=== PATIENT | female | born 1945 | race Caucasian/White ===

== ENCOUNTER 2024-03-18 21:55 | Inpatient (IN) | payer MEDICARE ==
[~2024-03-18] VITALS: Ht 154.9 cm; Wt 79.8 kg
[2024-03-18 22:17] VITALS: BP_SYST 156; PULSE 82; RESP 22; TEMP 97; O2SAT 98
[2024-03-18 23:30] LABS: BASOPHILS % (AUTO) 0.5 % (0.0-2.0); EOSINOPHILS % (AUTO) 0.4 % (0.0-4.0); HEMATOCRIT 40.3 % (36-48); HEMOGLOBIN 13.8 g/dL (12.0-16.0); LYMPHOCYTES # (AUTO) 0.7 K/uL (1.0-5.5); LYMPHOCYTES % (AUTO) 24.7 % (20.5-51.5); MEAN CORPUSCULAR HEMOGLOBIN 31 pg (27-31); MEAN CORPUSCULAR HGB CONC 34 % (32-36); MEAN CORPUSCULAR VOLUME 89 fL (79.0-98.0); MONOCYTES # (AUTO) 0.1 K/uL (0.0-1.0); MONOCYTES % (AUTO) 2.7 % (1.7-9.3); NEUTROPHILS # (AUTO) 2.1 K/uL (1.8-7.7); NEUTROPHILS % (AUTO) 71.7 % (40.0-70.0); PLATELET COUNT (AUTO) 193 K/uL (130-430); RED BLOOD CELL COUNT(AUTO) 4.52 MIL/uL (4.2-6.2); RED CELL DISTRIBUTION WIDTH 15.4 % (9.0-15.0)
[2024-03-18] MEDS: MORPHINE 4 MG INJ. 4 MG/ML VIAL IVP ONE (23:34)
[2024-03-18] MEDS: NACL 0.9% 1,000 ML IV ONE (23:49)
[2024-03-19] VITALS (21 sets, daily range): BP systolic 76–136; PULSE 111–132; RESP 12–27; TEMP 97.1–98.6; O2SAT 26–98
[2024-03-19 00:06] LABS: ALANINE AMINOTRANSFERASE 13 U/L (12-78); ALBUMIN 3.1 g/dL (3.4-4.8); ANION GAP 12 (5-15); ASPARTATE AMINOTRANSFERASE 10 U/L (10-37); BILIRUBIN,DIRECT 0.2 mg/dL (0.0-0.3); CALCIUM 8.7 mg/dL (8.4-11.0); CARBON DIOXIDE 22 mmol/L (23-29); CHLORIDE 103 mmol/L (98-107); CREATININE 0.84 mg/dL (0.55-1.30); GLUCOSE 146 mg/dL (74-106); POTASSIUM 3.9 mmol/L (3.5-5.1); SODIUM SERUM 137 mmol/L (136-145); TOTAL BILIRUBIN 0.5 mg/dL (0.0-1.0); TOTAL PROTEIN, SERUM 6.7 g/dL (6.4-8.3); UREA NITROGEN, BLOOD 24 mg/dL (8-21)
[2024-03-19 00:38] LABS: BILIRUBIN,URINE NEGATIVE (NEGATIVE); BLOOD, URINE NEGATIVE (NEGATIVE); CLARITY/URINE CLEAR (CLEAR); COLOR,URINE YELLOW (YELLOW); GLUCOSE,URINE NEGATIVE (NEGATIVE); KETONES,URINE NEGATIVE (NEGATIVE); LEUKOCYTE ESTERASE ,URINE NEGATIVE (NEGATIVE); NITRITE, URINE NEGATIVE (NEGATIVE); PROTEIN URINE NEGATIVE (NEGATIVE); UROBILINOGEN,URINE 0.2 (0.2-1.0)
[2024-03-19] MEDS: MORPHINE 4 MG INJ. 4 MG/ML VIAL IVP ONE (00:53)
[2024-03-19] MEDS ORDERED: MORPHINE 4 MG INJ. 4 MG/ML VIAL ONE (00:54)
[2024-03-19] MEDS ORDERED: ONDANSETRON HCL 4 MG/2 ML VIAL IVP PRN ×2 (01:30→09:15)
[2024-03-19] MEDS: D5NS 1,000 ML IV SCH (02:14)
[2024-03-19] MEDS ORDERED: DIATR MEGLU/DIATRIZ SOD 30 ML SOLUTION PO ONE (02:20)
[2024-03-19] MEDS: MORPHINE 2 MG/ML INJ. SYRINGE IVP PRN ×2 (03:27→07:52)
[2024-03-19] MEDS ORDERED: ONDA4TAB55 PO (06:45)
[2024-03-19] MEDS ORDERED: ACET1TAB93 PO (06:45)
[2024-03-19] MEDS ORDERED: TRAM50TA2 PO (06:45)
[2024-03-19] MEDS ORDERED: ALEN70TA27 PO (06:45)
[2024-03-19] MEDS ORDERED: ZOLPIDEM TARTRATE 5 MG TABLET PO PRN (07:30)
[2024-03-19] MEDS ORDERED: DOCUSATE SODIUM 100 MG CAPSULE PO PRN (07:30)
[2024-03-19] MEDS ORDERED: MUPIROCIN 2% TOPICAL OINTMENT 22 GM NS PRN (07:30)
[2024-03-19] MEDS ORDERED: POTASSIUM CHLORIDE 20 MEQ TABLET.ER PO PRN (07:30)
[2024-03-19] MEDS ORDERED: MORPHINE 2 MG/ML INJ. SYRINGE IVP PRN (07:30)
[2024-03-19] MEDS ORDERED: ACETAMINOPHEN 325 MG TABLET PO PRN ×3 (07:30→07:45)
[2024-03-19] MEDS ORDERED: NALOXONE HCL 0.4 MG/ML AMP (NARCAN) IVP PRN ×2 (07:30)
[2024-03-19] MEDS ORDERED: PIPERACILLIN/TAZOBACTAM 3.375 GM/VIAL (ZOSYN) IV ONE (07:45)
[2024-03-19] MEDS ORDERED: NACL 0.9% 500 ML IV SCH (08:15)
[2024-03-19] MEDS: PIPERACILLIN/TAZO 3.375 GM in D5W 50 ML IV SCH (08:32)
[2024-03-19 08:40] LABS: BASOPHILS % (AUTO) 0.3 % (0.0-2.0); HEMATOCRIT 40.9 % (36-48); HEMOGLOBIN 13.3 g/dL (12.0-16.0); LYMPHOCYTES # (AUTO) 0.4 K/uL (1.0-5.5); LYMPHOCYTES % (AUTO) 12.7 % (20.5-51.5); MEAN CORPUSCULAR HEMOGLOBIN 30 pg (27-31); MEAN CORPUSCULAR HGB CONC 33 % (32-36); MEAN CORPUSCULAR VOLUME 91 fL (79.0-98.0); MONOCYTES # (AUTO) 0.2 K/uL (0.0-1.0); MONOCYTES % (AUTO) 6.9 % (1.7-9.3); NEUTROPHILS # (AUTO) 2.7 K/uL (1.8-7.7); NEUTROPHILS % (AUTO) 80.1 % (40.0-70.0); PLATELET COUNT (AUTO) 186 K/uL (130-430); RED CELL DISTRIBUTION WIDTH 15.4 % (9.0-15.0); WHITE BLOOD COUNT (AUTO) 3.4 K/uL (4.8-10.8)
[2024-03-19 09:06] LABS: HEMOGLOBIN A1C 6.2 % (<5.7)
[2024-03-19] MEDS ORDERED: HYDROmorphone 1 MG/ML INJ. CARTRIDGE IVP PRN (09:15)
[2024-03-19] MEDS ORDERED: MORPHINE 4 MG INJ. 4 MG/ML VIAL IVP PRN (09:15)
[2024-03-19] MEDS ORDERED: DEXAMETHASONE SOD PHOSPHATE 4 MG/ML VIAL ONE (09:26)
[2024-03-19] MEDS: FENTANYL CITRATE-0.9 % NACL/PF 100 ML IV ONE (12:29)
[2024-03-19] MEDS: MIDAZOLAM IN NACL,ISO-OSMOT/PF 100 ML IV ONE (12:30)
[2024-03-19] MEDS: MIDAZOLAM IN NACL,ISO-OSMOT/PF 100 ML IV PRN (12:47)
[2024-03-19] MEDS: FENTANYL CITRATE-0.9 % NACL/PF 100 ML IV PRN (12:50)
[2024-03-19] MEDS: LR 1,000 ML IV SCH (12:55)
[2024-03-19] MEDS: NOREPINEPHRINE 4 MG/4 ML VIAL IV ONE ×2 (13:41→13:44)
[2024-03-19 13:42] LABS: ABG O2 SAT% ESTIMATE 95.1 % (94.0-100.0); BLOOD GAS PCO2 38.5 mmHg (35.0-45.0); BLOOD GAS PO2 85.5 mmHg (75.0-100.0)
[2024-03-19 13:52] LABS: BLOOD GAS BASE EXCESS -9.5 mmol/L (-3.0-3.0); BLOOD GAS HCO3 16.9 mmol/L (21.0-27.0)
[2024-03-19] MEDS: NOREPINEPHRINE BITARTRATE 8 MG in D5W 242 ML IV PRN (14:19)
[2024-03-19 16:04] LABS: INR 1.3 (0.8-1.2); PROTHROMBIN TIME 13.3 SECS (9.5-12.5)
[2024-03-19] MEDS: NS 500 ML IV ONE (17:20)
[2024-03-19] MEDS: PROPOFOL DRIP 100 ML IV PRN (22:54)
[2024-03-20] VITALS (42 sets, daily range): BP systolic 91–137; PULSE 100–138; RESP 15–23; TEMP 98.2–99.9; O2SAT 95–100
[2024-03-20 04:56] LABS: BASOPHILS % (AUTO) 0.1 % (0.0-2.0); EOSINOPHILS % (AUTO) 0.1 % (0.0-4.0); HEMATOCRIT 37.1 % (36-48); HEMOGLOBIN 12.2 g/dL (12.0-16.0); LYMPHOCYTES # (AUTO) 0.8 K/uL (1.0-5.5); LYMPHOCYTES % (AUTO) 5.1 % (20.5-51.5); MEAN CORPUSCULAR HEMOGLOBIN 30 pg (27-31); MEAN CORPUSCULAR HGB CONC 33 % (32-36); MEAN CORPUSCULAR VOLUME 90 fL (79.0-98.0); MONOCYTES # (AUTO) 0.5 K/uL (0.0-1.0); MONOCYTES % (AUTO) 3.2 % (1.7-9.3); NEUTROPHILS # (AUTO) 14.5 K/uL (1.8-7.7); NEUTROPHILS % (AUTO) 91.5 % (40.0-70.0); PLATELET COUNT (AUTO) 176 K/uL (130-430); RED BLOOD CELL COUNT(AUTO) 4.13 MIL/uL (4.2-6.2); RED CELL DISTRIBUTION WIDTH 15.3 % (9.0-15.0); WHITE BLOOD COUNT (AUTO) 15.8 K/uL (4.8-10.8)
[2024-03-20 05:12] LABS: ANION GAP 14 (5-15); CALCIUM 7.2 mg/dL (8.4-11.0); CARBON DIOXIDE 18 mmol/L (23-29); CHLORIDE 104 mmol/L (98-107); CREATININE 1.01 mg/dL (0.55-1.30); GLUCOSE 148 mg/dL (74-106); POTASSIUM 3.8 mmol/L (3.5-5.1); SODIUM SERUM 136 mmol/L (136-145); UREA NITROGEN, BLOOD 26 mg/dL (8-21)
[2024-03-20] MEDS: MAGNESIUM SULFATE 50 ML IV PRN (08:52)
[2024-03-20] MEDS: MAGNESIUM SULFATE 50 ML IV ONE (09:30)
[2024-03-20] MEDS: MEROPENEM 1 GM in NS 100 ML IV SCH (09:38)
[2024-03-20] MEDS: ALBUMIN HUMAN 5% 500 ML IV ONE (11:16)
[2024-03-20] MEDS: FLUCONAZOLE 200 mg/ NS 100 ML IV SCH (14:49)
[2024-03-20] MEDS ORDERED: metroNIDAZOLE 500 mg/NS 100 ML IV SCH (21:00)
[2024-03-20] MEDS: HEPARIN SODIUM,PORCINE 5,000 UNITS/ML VIAL SUBCUT SCH (21:40)
[2024-03-21] VITALS (41 sets, daily range): BP systolic 81–182; PULSE 80–111; RESP 14–53; TEMP 98.7–99.6; O2SAT 94–100
[2024-03-21 04:52] LABS: BASOPHILS % (AUTO) 0.2 % (0.0-2.0); EOSINOPHILS # (AUTO) 0.1 K/uL (0.0-0.4); EOSINOPHILS % (AUTO) 0.7 % (0.0-4.0); HEMATOCRIT 29.2 % (36-48); HEMOGLOBIN 9.5 g/dL (12.0-16.0); LYMPHOCYTES # (AUTO) 0.8 K/uL (1.0-5.5); LYMPHOCYTES % (AUTO) 4.6 % (20.5-51.5); MEAN CORPUSCULAR HEMOGLOBIN 29 pg (27-31); MEAN CORPUSCULAR HGB CONC 33 % (32-36); MEAN CORPUSCULAR VOLUME 90 fL (79.0-98.0); MONOCYTES # (AUTO) 0.4 K/uL (0.0-1.0); MONOCYTES % (AUTO) 2.1 % (1.7-9.3); NEUTROPHILS # (AUTO) 16.8 K/uL (1.8-7.7); NEUTROPHILS % (AUTO) 92.4 % (40.0-70.0); PLATELET COUNT (AUTO) 114 K/uL (130-430); RED BLOOD CELL COUNT(AUTO) 3.24 MIL/uL (4.2-6.2); RED CELL DISTRIBUTION WIDTH 15.9 % (9.0-15.0); WHITE BLOOD COUNT (AUTO) 18.1 K/uL (4.8-10.8)
[2024-03-21 05:27] LABS: ANION GAP 8 (5-15); CALCIUM 7.2 mg/dL (8.4-11.0); CARBON DIOXIDE 23 mmol/L (23-29); CHLORIDE 107 mmol/L (98-107); CREATININE 0.75 mg/dL (0.55-1.30); GLUCOSE 123 mg/dL (74-106); POTASSIUM 3.2 mmol/L (3.5-5.1); SODIUM SERUM 138 mmol/L (136-145); UREA NITROGEN, BLOOD 15 mg/dL (8-21)
[2024-03-21] MEDS: KCL 20 mEq in 100 mL (PREMIX) 100 ML IV ONE (08:18)
[2024-03-21 10:57] LABS: ABG O2 SAT% ESTIMATE 96.3 % (94.0-100.0); BLOOD GAS BASE EXCESS -3.2 mmol/L (-3.0-3.0); BLOOD GAS HCO3 20.2 mmol/L (21.0-27.0); BLOOD GAS PCO2 30.5 mmHg (35.0-45.0); BLOOD GAS PH 7.439 (7.350-7.450); BLOOD GAS PO2 79.2 mmHg (75.0-100.0)
[2024-03-21 11:01] LABS: ALLEN'S TEST POSITIVE (P)
[2024-03-21] MEDS: PIPERACILLIN/TAZO 4.5 GM in D5W 100 ML IV SCH (12:31)
[2024-03-21] MEDS ORDERED: ACETAMINOPHEN 500 MG TABLET PO PRN ×2 (16:00)
[2024-03-22] VITALS (33 sets, daily range): BP systolic 122–167; PULSE 68–105; RESP 14–32; TEMP 97.9–99.2; O2SAT 94–100
[2024-03-22 05:22] LABS: ANION GAP 6 (5-15); CALCIUM 7.3 mg/dL (8.4-11.0); CARBON DIOXIDE 24 mmol/L (23-29); CHLORIDE 110 mmol/L (98-107); GLUCOSE 135 mg/dL (74-106); POTASSIUM 3.1 mmol/L (3.5-5.1); SODIUM SERUM 140 mmol/L (136-145); UREA NITROGEN, BLOOD 11 mg/dL (8-21)
[2024-03-22 05:31] LABS: BASOPHILS # (AUTO) 0.1 K/uL (0.0-0.2); BASOPHILS % (AUTO) 0.5 % (0.0-2.0); EOSINOPHILS # (AUTO) 0.7 K/uL (0.0-0.4); EOSINOPHILS % (AUTO) 4.4 % (0.0-4.0); HEMATOCRIT 27.8 % (36-48); HEMOGLOBIN 9.2 g/dL (12.0-16.0); LYMPHOCYTES % (AUTO) 7.1 % (20.5-51.5); MEAN CORPUSCULAR HEMOGLOBIN 30 pg (27-31); MEAN CORPUSCULAR HGB CONC 33 % (32-36); MEAN CORPUSCULAR VOLUME 89 fL (79.0-98.0); MONOCYTES # (AUTO) 0.5 K/uL (0.0-1.0); MONOCYTES % (AUTO) 3.3 % (1.7-9.3); NEUTROPHILS # (AUTO) 12.5 K/uL (1.8-7.7); PLATELET COUNT (AUTO) 123 K/uL (130-430); RED BLOOD CELL COUNT(AUTO) 3.12 MIL/uL (4.2-6.2); RED CELL DISTRIBUTION WIDTH 15.6 % (9.0-15.0); WHITE BLOOD COUNT (AUTO) 14.7 K/uL (4.8-10.8)
[2024-03-22 08:00] LABS: NEUTROPHILS % (AUTO) 84.7 % (40.0-70.0)
[2024-03-22] MEDS: KCL 40 mEq in 100 mL (PREMIX) 100 ML IV ONE (08:29)
[2024-03-22 09:30] LABS: ABG O2 SAT% ESTIMATE 97.8 % (94.0-100.0); BLOOD GAS BASE EXCESS -2.3 mmol/L (-3.0-3.0); BLOOD GAS PCO2 30.8 mmHg (35.0-45.0); BLOOD GAS PH 7.451 (7.350-7.450); BLOOD GAS PO2 97.9 mmHg (75.0-100.0)
[2024-03-22 09:39] LABS: ALLEN'S TEST POSITIVE (P)
[2024-03-22] MEDS ORDERED: *TPN PER PHARMACY XX PRN (12:45)
[2024-03-22] MEDS ORDERED: DEXTROSE 50% JECT 50 ML DISP.SYRIN IVP PRN (12:45)
[2024-03-22] MEDS: IPRATROPIUM BROM 0.5 MG/2.5 ML VIAL.NEB (ATROVENT) INH SCH (19:21)
[2024-03-22] MEDS: LevALBUTEROL HCL 1.25 MG/0.5 ML *CONC.* VIAL.NEB (XOPENEX CONC.) INH SCH (19:21)
[2024-03-22] MEDS: BUDESONIDE 0.5 MG/2 ML AMPUL.NEB INH SCH (19:22)
[2024-03-23] VITALS (31 sets, daily range): BP systolic 92–152; PULSE 84–123; RESP 20–29; TEMP 98.8–101.2; O2SAT 92–100
[2024-03-23 05:36] LABS: ANION GAP 4 (5-15); CARBON DIOXIDE 25 mmol/L (23-29); CHLORIDE 108 mmol/L (98-107); CREATININE 0.61 mg/dL (0.55-1.30); GLUCOSE 156 mg/dL (74-106); PHOSPHORUS 1.6 mg/dL (2.7-4.5); POTASSIUM 3.1 mmol/L (3.5-5.1); SODIUM SERUM 137 mmol/L (136-145); UREA NITROGEN, BLOOD 9 mg/dL (8-21)
[2024-03-23 05:37] LABS: BASOPHILS % (AUTO) 0.4 % (0.0-2.0); EOSINOPHILS # (AUTO) 0.1 K/uL (0.0-0.4); HEMATOCRIT 28.9 % (36-48); HEMOGLOBIN 9.9 g/dL (12.0-16.0); LYMPHOCYTES # (AUTO) 0.9 K/uL (1.0-5.5); LYMPHOCYTES % (AUTO) 9.6 % (20.5-51.5); MEAN CORPUSCULAR HEMOGLOBIN 30 pg (27-31); MEAN CORPUSCULAR HGB CONC 34 % (32-36); MEAN CORPUSCULAR VOLUME 88 fL (79.0-98.0); MONOCYTES # (AUTO) 0.9 K/uL (0.0-1.0); MONOCYTES % (AUTO) 9.8 % (1.7-9.3); NEUTROPHILS # (AUTO) 7.5 K/uL (1.8-7.7); NEUTROPHILS % (AUTO) 79.2 % (40.0-70.0); PLATELET COUNT (AUTO) 107 K/uL (130-430); RED BLOOD CELL COUNT(AUTO) 3.28 MIL/uL (4.2-6.2); RED CELL DISTRIBUTION WIDTH 15.4 % (9.0-15.0); WHITE BLOOD COUNT (AUTO) 9.5 K/uL (4.8-10.8)
[2024-03-23 06:14] LABS: TRIGLYCERIDES 105 mg/dL (30-150)
[2024-03-23] MEDS: MORPHINE 2 MG/ML INJ. SYRINGE IVP PRN (09:55)
[2024-03-23] MEDS ORDERED: LevALBUTEROL HCL 1.25 MG/0.5 ML *CONC.* VIAL.NEB (XOPENEX CONC.) INH ONE (11:36)
[2024-03-23] MEDS: LORazepam 2 MG/ML VIAL IVP PRN (11:52)
[2024-03-23] MEDS: POTASSIUM CHLORIDE 40 MEQ, LIDOCAINE JECT 2% PF 100 MG 50 MG in NS 250 ML IV ONE (11:56)
[2024-03-23] MEDS: INSULIN REGULAR, HUMAN 100 UNITS/ML, 3 ML VIAL (humuLIN R) SUBCUT PRN (12:16)
[2024-03-23] MEDS: MORPHINE 4 MG INJ. 4 MG/ML VIAL IVP PRN (18:15)
[2024-03-23] MEDS: TPN PERIPHERAL IV SCH (20:34)
[2024-03-23] MEDS: MVI IV SCH (20:34)
[2024-03-23] MEDS: K PHOS IV SCH (20:34)
[2024-03-23] MEDS: MAGNESIUM SULFATE IV SCH (20:34)
[2024-03-23] MEDS: [UNRECOGNIZED DRUG - OTHER] IV SCH (20:34)
[2024-03-23] MEDS: PIPERACILLIN/TAZO 4.5 GM in D5W 100 ML IV SCH (21:02)
[2024-03-23] MEDS ORDERED: metroNIDAZOLE 500 mg/NS 100 ML IV SCH (22:00)
[2024-03-24] VITALS (32 sets, daily range): BP systolic 105–159; PULSE 88–118; RESP 12–25; TEMP 99.1–101; O2SAT 92–100
[2024-03-24 06:30] LABS: BASOPHILS % (AUTO) 0.4 % (0.0-2.0); EOSINOPHILS # (AUTO) 0.2 K/uL (0.0-0.4); EOSINOPHILS % (AUTO) 1.7 % (0.0-4.0); HEMATOCRIT 26.5 % (36-48); HEMOGLOBIN 9.2 g/dL (12.0-16.0); MEAN CORPUSCULAR HEMOGLOBIN 31 pg (27-31); MEAN CORPUSCULAR HGB CONC 35 % (32-36); MEAN CORPUSCULAR VOLUME 88 fL (79.0-98.0); MONOCYTES # (AUTO) 0.9 K/uL (0.0-1.0); MONOCYTES % (AUTO) 7.7 % (1.7-9.3); NEUTROPHILS # (AUTO) 9.3 K/uL (1.8-7.7); NEUTROPHILS % (AUTO) 81.2 % (40.0-70.0); PLATELET COUNT (AUTO) 123 K/uL (130-430); RED BLOOD CELL COUNT(AUTO) 2.99 MIL/uL (4.2-6.2); RED CELL DISTRIBUTION WIDTH 15.5 % (9.0-15.0); WHITE BLOOD COUNT (AUTO) 11.4 K/uL (4.8-10.8)
[2024-03-24 06:47] LABS: ALANINE AMINOTRANSFERASE 18 U/L (12-78); ALBUMIN 1.1 g/dL (3.4-4.8); ANION GAP 5 (5-15); ASPARTATE AMINOTRANSFERASE 21 U/L (10-37); CALCIUM 7.2 mg/dL (8.4-11.0); CARBON DIOXIDE 24 mmol/L (23-29); CHLORIDE 107 mmol/L (98-107); CREATININE 0.58 mg/dL (0.55-1.30); GLUCOSE 169 mg/dL (74-106); PHOSPHORUS 1.9 mg/dL (2.7-4.5); POTASSIUM 3.2 mmol/L (3.5-5.1); SODIUM SERUM 136 mmol/L (136-145); TOTAL BILIRUBIN 0.5 mg/dL (0.0-1.0); TOTAL PROTEIN, SERUM 4.7 g/dL (6.4-8.3); UREA NITROGEN, BLOOD 14 mg/dL (8-21)
[2024-03-24] MEDS: POTASSIUM CHLORIDE 40 MEQ, LIDOCAINE JECT 2% PF 100 MG 50 MG in NS 250 ML IV ONE (12:10)
[2024-03-24] MEDS: LIDOCAINE JECT 2% PF 100 MG/5ML SYRINGE ONE (12:10)
[2024-03-24] MEDS: FUROSEMIDE 20 MG/2 ML VIAL IVP ONE (14:13)
[2024-03-24] MEDS: TPN PERIPHERAL IV SCH (22:01)
[2024-03-24] MEDS: SODIUM ACETATE IV SCH (22:01)
[2024-03-24] MEDS: K PHOS IV SCH (22:01)
[2024-03-24] MEDS: [UNRECOGNIZED DRUG - OTHER] IV SCH (22:01)
[2024-03-25] VITALS (29 sets, daily range): BP systolic 95–176; PULSE 75–107; RESP 18–27; TEMP 98–99; O2SAT 88–100
[2024-03-25 04:35] LABS: BASOPHILS # (AUTO) 0.1 K/uL (0.0-0.2); BASOPHILS % (AUTO) 0.4 % (0.0-2.0); EOSINOPHILS # (AUTO) 0.7 K/uL (0.0-0.4); EOSINOPHILS % (AUTO) 4.7 % (0.0-4.0); HEMATOCRIT 26.2 % (36-48); HEMOGLOBIN 8.8 g/dL (12.0-16.0); LYMPHOCYTES # (AUTO) 1.1 K/uL (1.0-5.5); LYMPHOCYTES % (AUTO) 7.6 % (20.5-51.5); MEAN CORPUSCULAR HEMOGLOBIN 30 pg (27-31); MEAN CORPUSCULAR HGB CONC 34 % (32-36); MEAN CORPUSCULAR VOLUME 89 fL (79.0-98.0); MONOCYTES # (AUTO) 0.7 K/uL (0.0-1.0); MONOCYTES % (AUTO) 4.9 % (1.7-9.3); NEUTROPHILS # (AUTO) 11.8 K/uL (1.8-7.7); NEUTROPHILS % (AUTO) 82.4 % (40.0-70.0); PLATELET COUNT (AUTO) 144 K/uL (130-430); RED BLOOD CELL COUNT(AUTO) 2.95 MIL/uL (4.2-6.2); RED CELL DISTRIBUTION WIDTH 15.3 % (9.0-15.0); WHITE BLOOD COUNT (AUTO) 14.3 K/uL (4.8-10.8)
[2024-03-25 05:05] LABS: ALANINE AMINOTRANSFERASE 19 U/L (12-78); ANION GAP 7 (5-15); ASPARTATE AMINOTRANSFERASE 33 U/L (10-37); CALCIUM 7.1 mg/dL (8.4-11.0); CARBON DIOXIDE 24 mmol/L (23-29); CHLORIDE 106 mmol/L (98-107); CREATININE 0.54 mg/dL (0.55-1.30); GLUCOSE 157 mg/dL (74-106); PHOSPHORUS 2.8 mg/dL (2.7-4.5); POTASSIUM 3.9 mmol/L (3.5-5.1); SODIUM SERUM 137 mmol/L (136-145); TOTAL BILIRUBIN 0.7 mg/dL (0.0-1.0); TOTAL PROTEIN, SERUM 4.4 g/dL (6.4-8.3); UREA NITROGEN, BLOOD 16 mg/dL (8-21)
[2024-03-25] MEDS: *HEPARIN PER PHARMACY XX ONE (11:00)
[2024-03-25] MEDS: ACETAMINOPHEN 500 MG TABLET PO PRN (13:01)
[2024-03-25] MEDS: METOPROLOL TARTRATE 25 MG TABLET PO ONE (13:30)
[2024-03-25] MEDS ORDERED: HEPARIN 25,000 UNITS in 250 ML PREMIX IV PRN (14:00)
[2024-03-25] MEDS ORDERED: HEPARIN SODIUM,PORCINE 2000 UNITS/0.4 ML BOLUS IVP PRN (14:00)
[2024-03-25] MEDS ORDERED: HEPARIN SODIUM,PORCINE 3000 UNITS/0.6 ML BOLUS IVP PRN (14:00)
[2024-03-25] MEDS: PANTOPRAZOLE SODIUM 40 MG TAB PO ONE (15:37)
[2024-03-25] MEDS: *LOVENOX 1MG/KG Q12H/PHARMACY XX ONE (16:00)
[2024-03-25] MEDS: MICAFUNGIN SODIUM 100 MG in NS 100 ML IV SCH (17:18)
[2024-03-25] MEDS ORDERED: ENOXAPARIN SODIUM 80 MG/0.8 ML SYRINGE SUBCUT SCH (18:00)
[2024-03-25] MEDS: ENOXAPARIN SODIUM 80 MG/0.8 ML SYRINGE SUBCUT ONE (18:13)
[2024-03-25] MEDS: PIPERACILLIN/TAZO 4.5 GM in D5W 100 ML IV SCH (20:25)
[2024-03-25] MEDS: PANTOPRAZOLE SODIUM 40 MG TAB PO SCH (20:26)
[2024-03-25] MEDS: METOPROLOL TARTRATE 25 MG TABLET PO SCH (20:26)
[2024-03-25] MEDS: K PHOS IV SCH (20:33)
[2024-03-25] MEDS: TPN PERIPHERAL IV SCH (20:33)
[2024-03-25] MEDS: [UNRECOGNIZED DRUG - OTHER] IV SCH (20:33)
[2024-03-25] MEDS: SODIUM ACETATE IV SCH (20:33)
[2024-03-25] MEDS: ONDANSETRON HCL 4 MG/2 ML VIAL IVP PRN (21:13)
[2024-03-26] VITALS (21 sets, daily range): BP systolic 129–187; PULSE 94–120; RESP 18–27; TEMP 98.5–98.7; O2SAT 91–98
[2024-03-26] MEDS: ENOXAPARIN SODIUM 80 MG/0.8 ML SYRINGE SUBCUT SCH (05:23)
[2024-03-26 06:13] LABS: BASOPHILS # (AUTO) 0.1 K/uL (0.0-0.2); BASOPHILS % (AUTO) 0.4 % (0.0-2.0); EOSINOPHILS # (AUTO) 0.5 K/uL (0.0-0.4); EOSINOPHILS % (AUTO) 3.4 % (0.0-4.0); HEMATOCRIT 27.4 % (36-48); LYMPHOCYTES # (AUTO) 1.2 K/uL (1.0-5.5); LYMPHOCYTES % (AUTO) 7.3 % (20.5-51.5); MEAN CORPUSCULAR HEMOGLOBIN 29 pg (27-31); MEAN CORPUSCULAR HGB CONC 33 % (32-36); MEAN CORPUSCULAR VOLUME 89 fL (79.0-98.0); MONOCYTES # (AUTO) 0.7 K/uL (0.0-1.0); MONOCYTES % (AUTO) 4.1 % (1.7-9.3); NEUTROPHILS # (AUTO) 13.5 K/uL (1.8-7.7); NEUTROPHILS % (AUTO) 84.8 % (40.0-70.0); PLATELET COUNT (AUTO) 213 K/uL (130-430); RED BLOOD CELL COUNT(AUTO) 3.09 MIL/uL (4.2-6.2); RED CELL DISTRIBUTION WIDTH 15.5 % (9.0-15.0)
[2024-03-26] MEDS ORDERED: hydrALAZINE HCL 20 MG/ML VIAL IVP PRN (06:15)
[2024-03-26] MEDS: hydrALAZINE HCL 20 MG/ML VIAL ONE (06:22)
[2024-03-26 06:59] LABS: ALANINE AMINOTRANSFERASE 66 U/L (12-78); ALBUMIN 1.1 g/dL (3.4-4.8); ANION GAP 7 (5-15); ASPARTATE AMINOTRANSFERASE 97 U/L (10-37); CALCIUM 7.6 mg/dL (8.4-11.0); CARBON DIOXIDE 26 mmol/L (23-29); CHLORIDE 104 mmol/L (98-107); CREATININE 0.48 mg/dL (0.55-1.30); GLUCOSE 146 mg/dL (74-106); PHOSPHORUS 2.2 mg/dL (2.7-4.5); POTASSIUM 3.2 mmol/L (3.5-5.1); SODIUM SERUM 137 mmol/L (136-145); TOTAL BILIRUBIN 0.5 mg/dL (0.0-1.0); TOTAL PROTEIN, SERUM 4.8 g/dL (6.4-8.3); UREA NITROGEN, BLOOD 16 mg/dL (8-21)
[2024-03-26] MEDS: D5NS 1,000 ML IV SCH (09:26)
[2024-03-26] MEDS: K PHOS 30 MM in NS 250 ML IV ONE (10:52)
[2024-03-26] MEDS ORDERED: SODIUM ACETATE IV SCH (21:00)
[2024-03-26] MEDS ORDERED: [UNRECOGNIZED DRUG - OTHER] IV SCH (21:00)
[2024-03-26] MEDS ORDERED: K PHOS IV SCH (21:00)
[2024-03-26] MEDS ORDERED: TPN PERIPHERAL IV SCH (21:00)
== END 2024-03-26 17:00 | disposition short-term general hospital (02) | DRG 853 ==
LOC: SED 21:55 → STU 03-19 01:20 → SIC 03-19 12:14
PROVIDERS: ADMIT General Practice; ATTEND General Practice
PROC: 0D1N0Z4 Bypass Sigmoid Colon to Cutaneous, Open Approach (ICD-10-PCS; 2024-03-19)
PROC: 5A1945Z Respiratory Ventilation, 24-96 Consecutive Hours (ICD-10-PCS; 2024-03-19)
PROC: 0BH17EZ Insertion of Endotracheal Airway into Trachea, Via Natural or Artificial Opening (ICD-10-PCS; 2024-03-19)
PROC: 02HV33Z Insertion of Infusion Device into Superior Vena Cava, Percutaneous Approach (ICD-10-PCS; 2024-03-19)
PROC: 0DBN0ZZ Excision of Sigmoid Colon, Open Approach (ICD-10-PCS; principal; 2024-03-19 09:30)
PROC: 5A09357 Assistance with Respiratory Ventilation, Less than 24 Consecutive Hours, Continuous Positive Airway Pressure (ICD-10-PCS; 2024-03-21)
DX: A41.9 Sepsis, unspecified organism (principal); J96.01 Acute respiratory failure with hypoxia; R65.21 Severe sepsis with septic shock; K65.9 Peritonitis, unspecified; E44.1 Mild protein-calorie malnutrition; D62 Acute posthemorrhagic anemia; K57.20 Diverticulitis of large intestine with perforation and abscess without bleeding; E86.0 Dehydration; K59.00 Constipation, unspecified; Z96.651 Presence of right artificial knee joint; E66.9 Obesity, unspecified; M17.0 Bilateral primary osteoarthritis of knee; D69.6 Thrombocytopenia, unspecified; Z79.899 Other long term (current) drug therapy; Z68.33 Body mass index [BMI] 33.0-33.9, adult
CPT/HCPCS: 36415; 36600; 71045; 80048; 80053; 80076; 81001; 81003; 82803; 82948; 83037; 83735; 84100; 84478; 85025; 85610; 85730; 87040; 87070; 87081; 87205; 88307; 93005; 93306; 93970; 94002; 94003; 94070; 94640; 96361; 96374; 97110-GP; 97163-GP; 97530-GP; 99285; A4649; J0330; J0360; J0610; J0696; J1100; J1450; J1644; J1650; J1815; J1940; J2060; J2185; J2248; J2270; J2405; J2543; J2704; J3010; J3465; J3475; J3480; J3490; J7050; J7060; J7120; J7612; J7626; P9041; Q9964; Q9967